=== PATIENT | female | born 1960 | race African-American/Black ===

== ENCOUNTER 2017-11-02 11:27 | Emergency (ER) | payer OTHER ==
[2017-11-02 12:05] VITALS: BP 134/115; PULSE 85; TEMP 97.8; BMI 30.7
[2017-11-02] MEDS ORDERED: IBUPROFEN 600 MG TABLET (FP) PO ONE ×3 (13:05→13:07)
--- NOTE | 2017-11-02 13:05 | PDOC ---
History of Present Illness - General Chief Complaint: Pain, Acute Stated Complaint: LT LEG PAIN Time Seen by Provider: 11/02/17 12:56 History Source: Patient Exam Limitations: No Limitations - History of Present Illness Initial Comments: 11/02/17 13:11 Patient came for evaluation of a long standing left leg pain with radiation down thigh with some intermittent numbness. States has been evaluated by multiple doctors including Dr. Dyer with multiple laboratory works drawn, [employer]CRUIT[employer] doctor and all of been cleared for any internal pathology. Denies any history of trauma, no car accidents, no history of lumbar spine or any stenosis. 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 Denies fever, any respiratory illness. Denies nausea vomiting diarrhea or constipation, however states sometimes after eating the pain is reproduced in her left lower abdomen/thigh. Discussed all of these symptoms with her PMD and RECRUITING CONSULTANT doctor and they have not come to a solution or diagnosis. Patient states because she was not working this week decided to come to emergency department for further evaluation. Occurred: reports: other Pain Location: reports: lower extremity (left hip) Method of Injury: Yes: unknown Loss of Consciousness: no loss of consciousness Associated Symptoms (Fall): denies symptoms Past History - Travel Traveled outside of the country in the last 30 days: No Close contact w/someone who was outside of country & ill: No - Past Medical History Allergies/Adverse Reactions: Allergies Allergy/AdvReac Type Severity Reaction Status Date / Time No Known Allergies Allergy Verified 11/02/17 12:00 Home Medications: Ambulatory Orders Cyclobenzaprine HCl [Flexeril 10 mg] 10 mg PO BID PRN #14 tablet 11/02/17 CVA: No COPD: No DVT: No - Immunization History Immunization Up to Date: Yes - Suicide/Smoking/Psychosocial Hx Smoking History: Current every day smoker Have you smoked in the past 12 months: No Number of Cigarettes Smoked Daily: 2 Information on smoking cessation initiated: No Hx Alcohol Use: No Drug/Substance Use Hx: No Substance Use Type: None Trauma Specific PMHX - Complaint Specific PMHX Back Injury: No Neck Injury: No Review of Systems - Review of Systems Able to Perform ROS?: Yes Is the patient limited Vietnamese proficient: Yes Constitutional: Yes: See HPI. No: Symptoms Reported, Malaise HEENTM: Yes: See HPI. No: Symptoms Reported Respiratory: Yes: See HPI. No: Symptoms reported, Cough ABD/GI: Yes: Symptoms Reported, See HPI, Other : Yes: See HPI. No: Symptoms Reported, Burning, Dysuria Musculoskeletal: Yes: Symptoms Reported, See HPI, Joint Pain, Muscle Pain (left thigh and hip area) Integumentary: Yes: See HPI. No: Symptoms Reported, Pruritus, Rash All Other Systems: Reviewed and Negative *Physical Exam - Vital Signs Last Vital Signs Temp Pulse Resp BP Pulse Ox 97.8 F 85 17 134/115 98 11/02/17 12:01 11/02/17 12:01 11/02/17 12:11/02/17 12:11/02/17 12:01 - Physical Exam General Appearance: Yes: Appropriately Dressed HEENT: positive: NAOMI, Normal ENT Inspection, TMs Normal, Pharynx Normal Neck: positive: Supple. negative: Tender, Lymphadenopathy (R), Lymphadenopathy (L) Respiratory/Chest: positive: Lungs Clear, Normal Breath Sounds Musculoskeletal: positive: Normal Inspection. negative: CVA Tenderness, Decreased Range of Motion (patient is ambulatory without unsteadiness or limp), Vertebral Tenderness Extremity: positive: Normal Capillary Refill, Normal Inspection, Normal Range of Motion (has full range of motion to left hip, neurovascular intact to foot). negative: Tender Integumentary: positive: Dry, Warm, Pale. negative: Normal Color Neurologic: positive: cooking chef II-XII NML intact, Fully Oriented, Alert, Normal Mood/ Affect, Normal Response, Motor Strength 5/5 Progress Note - Progress Note Progress Note: X-ray negative for fractures or dislocations, no obvious compression fractures, however curve has straightened indicating mild spasm potential. Discussed with patient and agrees we will try antispasmodic and anti-inflammatory therapy to see if helped resolve some of this chronic pain and have her follow-up with orthopedist *DC/Admit/Observation/Transfer Diagnosis at time of Disposition: Back pain Qualifiers: Back pain location: low back pain Chronicity: acute Back pain laterality: left Sciatica presence: with sciatica Sciatica laterality: sciatica of left side Qualified Code(s): M54.42 - Lumbago with sciatica, left side - Discharge Dispostion Disposition: HOME Condition at time of disposition: Stable Admit: No - Prescriptions Prescriptions: Cyclobenzaprine HCl [Flexeril 10 mg] 10 mg PO BID PRN #14 tablet PRN Reason: spasm - Referrals Referrals: Dewayne Parrish MD [Primary Care Provider] - Tiago Braden MD [Staff Physician] - - Patient Instructions Printed Discharge Instructions: DI for Back Strain or Sprain Additional Instructions: Rest, no heavy lifting or exercise until pain is resolved Hot soaks to neck and low back as often as possible/hot showers or Jacuzzis No massage or therapy until spasm is gone Continue ibuprofen 2-200 mg tablets every 6 hours for the next 3 days then as needed for pain and swelling Cyclobenzaprine 1-10mg every 8 hours as needed for spasm If not significant improvement within 24 hours with medication and rest regime, followup with private physician for change in medications and /or therapy. - Post Discharge Activity Forms/Work/School Notes: Back to Work
== END 2017-11-02 14:19 | disposition home or self-care (01) ==
LOC: JERFT 11:27 → JER 11:27 → JERFT 14:19
DX: M54.42 Lumbago with sciatica, left side (principal)
CPT/HCPCS: 72100-TC; 99281-25